=== PATIENT | female | born 1965 | race Hispanic/Latino ===

== ENCOUNTER 2024-06-02 11:50 | Outpatient (CLI) | payer BC | END 2024-06-02 11:51 | disposition home or self-care (01) | LOC: CSHMAMMO 11:50 | PROVIDERS: ATTEND Family Medicine | DX: Z12.31 Encounter for screening mammogram for malignant neoplasm of breast (principal); Z80.3 Family history of malignant neoplasm of breast | CPT/HCPCS: 77063; 77067 ==

== ENCOUNTER 2024-06-20 14:23 | Outpatient (CLI) | payer BC | END 2024-06-20 14:24 | disposition home or self-care (01) | LOC: CSHMAMMO 14:23 | PROVIDERS: ATTEND Family Medicine | DX: Z78.0 Asymptomatic menopausal state (principal); M85.89 Other specified disorders of bone density and structure, multiple sites | CPT/HCPCS: 77080 ==

== ENCOUNTER 2025-06-26 12:54 | Outpatient (CLI) | payer BC | END 2025-06-26 12:55 | disposition home or self-care (01) | LOC: CSHMAMMO 12:54 | PROVIDERS: ATTEND Family Medicine | DX: Z12.31 Encounter for screening mammogram for malignant neoplasm of breast (principal); Z80.3 Family history of malignant neoplasm of breast | CPT/HCPCS: 77063; 77067 ==